=== PATIENT | female | born 1965 | race Caucasian/White ===

== ENCOUNTER → 2016-09-06 | Day surgery (SDC) | payer OTHER ==
[~2016-09-06] VITALS: Ht 162.6 cm; Wt 101.8 kg
== END | disposition home or self-care (01) ==
LOC: FAS 08:16
DX: D64.9 Anemia, unspecified (principal); M19.90 Unspecified osteoarthritis, unspecified site; I10 Essential (primary) hypertension; E78.00 Pure hypercholesterolemia, unspecified; E03.9 Hypothyroidism, unspecified; Z85.42 Personal history of malignant neoplasm of other parts of uterus; Z98.51 Tubal ligation status; Z90.49 Acquired absence of other specified parts of digestive tract; Z90.710 Acquired absence of both cervix and uterus; Z81.1 Family history of alcohol abuse and dependence; Z83.2 Family history of diseases of the blood and blood-forming organs and certain disorders involving the immune mechanism; Z80.3 Family history of malignant neoplasm of breast; Z81.8 Family history of other mental and behavioral disorders; Z79.899 Other long term (current) drug therapy
CPT/HCPCS: 88305; 88311; 88313; 88342; J2704